=== PATIENT | female | born 1955 | race Caucasian/White ===

== ENCOUNTER → 2019-11-29 | Outpatient (CLI) | payer MEDICARE ==
[~2019-11-29] MED LIST: BP meds PO; Metformin PO; OXYC-302 PO; trazodone PO
[2019-11-29 10:27] LABS: BASOPHILS % (AUTO) 1 % (0-1); EOSINOPHILS # (AUTO) 0.15 x10^3/uL (0-0.4); EOSINOPHILS % (AUTO) 2 % (1-7); LYMPHOCYTES # (AUTO) 2.25 x10^3/uL (1-3.4); LYMPHOCYTES % (AUTO) 27 % (22-44); MD NO; MEAN CORPUSCULAR HGB CONC 32.4 g/dL (32.4-35.8); MEAN CORPUSCULAR VOLUME 86.3 fL (80-100); MONOCYTES # (AUTO) 0.51 x10^3/uL (0.2-0.8); MONOCYTES % (AUTO) 6 % (2-9); NEUTROPHILS # (AUTO) 5.37 x10^3/uL (1.8-6.8); NEUTROPHILS % (AUTO) 64 % (42-75); PLATELET COUNT 246 x10^3/uL (130-400); RED BLOOD COUNT 5.74 x10^6/uL (3.82-5.3); RED CELL DISTRIBUTION WIDTH 16.8 % (9.6-15.2)
[2019-11-29 10:37] LABS: MICROSCOPIC NOT IND
[2019-11-29 10:39] LABS: ANION GAP 4 mmol/L (5-15); CALCIUM 9.6 mg/dL (8.5-10.1); CHLORIDE 101 mmol/L (98-107)
[2019-11-29 10:40] LABS: INTERNATIONAL NORMALIZED RATIO 0.94 (0.93-1.1)
[2019-11-29 10:42] LABS: ALANINE AMINOTRANSFERASE 21 U/L (12-78); ALBUMIN 3.7 g/dL (3.4-5.0); ALKALINE PHOSPHATASE 132 U/L (45-117); BILIRUBIN,TOTAL 0.5 mg/dL (0.2-1.0); CREATININE 0.98 mg/dL (0.55-1.02); TOTAL PROTEIN 8.5 g/dL (6.4-8.2)
== END | disposition home or self-care (01) ==
LOC: STAR 09:26
PROVIDERS: ATTEND Neurological Surgery
DX: Z01.811 Encounter for preprocedural respiratory examination (principal); Z01.812 Encounter for preprocedural laboratory examination; Z01.810 Encounter for preprocedural cardiovascular examination; M48.061 Spinal stenosis, lumbar region without neurogenic claudication; M43.16 Spondylolisthesis, lumbar region; M54.16 Radiculopathy, lumbar region; R79.1 Abnormal coagulation profile; R82.90 Unspecified abnormal findings in urine; R94.31 Abnormal electrocardiogram [ECG] [EKG]
CPT/HCPCS: 36415; 71046; 80053; 81003; 85025; 85610; 85730; 93005

== ENCOUNTER 2019-12-04 09:30 | Inpatient (IN) | payer MEDICARE ==
[~2019-12-04] VITALS: Ht 154.9 cm; Wt 83.4 kg
[~2019-12-04 09:30] MED LIST changes: +BACITRACIN 50,000 UNIT ONE; +BUPIVACAINE/PF-EPI 0.5% 1:200K ONE; +HEPARIN 1,000 UNITS/ML, 30ML ONE
[2019-12-04] MEDS ORDERED: FENTANYL PF 250 MCG/5ML ONE (11:04)
[2019-12-04] MEDS ORDERED: MIDAZOLAM 1 MG/ML, 2ML ONE (11:04)
[2019-12-04] MEDS ORDERED: LACTATED RINGERS 1,000 ML IV SCH (11:19)
[2019-12-04] MEDS ORDERED: CHLORHEXIDINE 15 ML UDC MM ONE (11:30)
[2019-12-04] MEDS ORDERED: METF500T17 PO (11:32)
[2019-12-04] MEDS ORDERED: TRAZ150T62 PO (11:32)
[2019-12-04] MEDS ORDERED: PIOG30TA67 PO (11:32)
[2019-12-04] MEDS ORDERED: CARV6.252 PO (11:32)
[2019-12-04] MEDS ORDERED: TELM80TA8 PO (11:32)
[2019-12-04] MEDS ORDERED: AMLO10TA8 PO (11:32)
[2019-12-04] MEDS ORDERED: ESCI20TA10 PO (11:32)
[2019-12-04] MEDS ORDERED: GABA-827 PO (11:32)
[2019-12-04] MEDS ORDERED: BUSP7.5T5 PO (11:32)
[2019-12-04] MEDS ORDERED: CHLO25TA PO (11:32)
[2019-12-04] MEDS ORDERED: ATOR-2 PO (11:32)
[2019-12-04] MEDS ORDERED: LIDOCAINE-MPF 2% ,5ML ONE (12:23)
[2019-12-04] MEDS ORDERED: ACETAMINOPHEN 325 MG TABLET PO PRN (13:00)
[2019-12-04] MEDS ORDERED: hydrALAzine 20 MG/ML, 1ML IV PRN (13:00)
[2019-12-04] MEDS ORDERED: ALBUTEROL SULFATE 2.5 MG/3 ML NPPB PRN (13:00)
[2019-12-04] MEDS ORDERED: LORazepam 2 MG/ML, 1ML IVPush PRN (13:00)
[2019-12-04] MEDS ORDERED: LABETALOL 5MG/ML, 20ML IV PRN (13:00)
[2019-12-04] MEDS ORDERED: HYDROmorphone 1 MG/ML, 1ML INJ IVPush PRN (13:00)
[2019-12-04] MEDS ORDERED: MEPERIDINE/PF 25MG/0.5ML IVPush PRN (13:00)
[2019-12-04] MEDS ORDERED: PROMETHAZINE 25 MG/ML, 1ML IVPush PRN (13:00)
[2019-12-04] MEDS ORDERED: CEFAZOLIN 1,000 MG ONE (13:50)
[2019-12-04] MEDS ORDERED: ONDANSETRON 2MG/ML, 2ML ONE (13:50)
[2019-12-04] MEDS ORDERED: SUCCINYLCHOLINE 20 MG/ML, 10ML ONE (13:50)
[2019-12-04] MEDS ORDERED: PROPOFOL 10 MG/ML, 20ML ONE (13:50)
[2019-12-04] MEDS ORDERED: SUGAMMADEX 200 MG/2 ML IVPush ONE (13:50)
[2019-12-04] MEDS ORDERED: ROCURONIUM 10MG/ML,5ML ONE (13:50)
[2019-12-04] MEDS ORDERED: DEXAMETHASONE 4 MG/ML, 1ML ONE (13:50)
[2019-12-04] MEDS ORDERED: FENTANYL PF 100 MCG/2ML ONE ×2 (14:23→15:13)
[2019-12-04] MEDS ORDERED: OXYcodone 5 MG/5 ML ORAL.SOL UDC ONE ×2 (14:24→15:47)
[2019-12-04] MEDS: FENTANYL PF 100 MCG/2ML IV PRN ×5 (14:26→16:03)
[2019-12-04] MEDS ORDERED: BISACODYL 10 MG SUPP PR PRN (14:30)
[2019-12-04] MEDS ORDERED: METHOCARBAMOL 1,000 MG in DEXTROSE 5% 100 ML IV ONE (14:30)
[2019-12-04] MEDS ORDERED: DIPHENHYDRAMINE 50 MG/ML, 1ML IVPush PRN (14:30)
[2019-12-04] MEDS ORDERED: MAGNESIUM HYDROXIDE 8%, 30ML UDC PO PRN (14:30)
[2019-12-04] MEDS ORDERED: PHARMACY MAY ADJ FOR RENAL FX MC PRN (14:30)
[2019-12-04] MEDS ORDERED: INSULIN REGULAR 100 UNITS/ML, 3ML VIAL SQ-INSULIN PRN (14:30)
[2019-12-04] MEDS ORDERED: SENNA/DOCUSATE TABLET PO PRN (14:30)
[2019-12-04] MEDS ORDERED: PROMETHAZINE 25 MG/ML, 1ML IM PRN (14:30)
[2019-12-04] MEDS ORDERED: ONDANSETRON 2MG/ML, 2ML IVPush PRN (14:30)
[2019-12-04] MEDS: OXYcodone 5 MG/5 ML ORAL.SOL UDC PO PRN ×2 (15:00→15:48)
[2019-12-04] MEDS ORDERED: METHOCARBAMOL 1,000 MG in DEXTROSE 5% 100 ML IV PRN (15:00)
[2019-12-04] MEDS ORDERED: CEFAZOLIN PMX 1GM/50ML 50 ML IVPB SCH (17:30)
[2019-12-04] MEDS ORDERED: ENOXAPARIN 40 MG/0.4 ML SQ SCH (17:30)
[2019-12-04] MEDS: NS + 20MEQ KCL 1,000 ML IV SCH (17:44)
[2019-12-04] MEDS: HYDROmorphone 1 MG/ML, 1ML INJ IVPush PRN (17:44)
[2019-12-04] MEDS: GABAPENTIN 300 MG CAPSULE PO SCH ×2 (17:44→20:58)
[2019-12-04 18:46] VITALS: BP 147/68
[2019-12-04] MEDS: METHOCARBAMOL 750 MG TABLET PO PRN (19:57)
[2019-12-04] MEDS: HYDROcodone/APAP 5/325 TABLET PO PRN (19:57)
[2019-12-04] MEDS: CEFAZOLIN PMX 1GM/50ML 50 ML IVPB SCH (20:58)
[2019-12-04] MEDS: CARVEDILOL 6.25 MG TABLET PO SCH (20:58)
[2019-12-04] MEDS: TRAZODONE 150MG TABLET PO SCH (20:58)
[2019-12-04] MEDS: ATORVASTATIN 80 MG TABLET PO SCH (20:58)
[2019-12-04] MEDS: NICOTINE 21 MG/24 HR PATCH.TD24 TD SCH (20:59)
[2019-12-04] MEDS: INSULIN REGULAR 100 UNITS/ML, 3ML VIAL SQ-INSULIN SCH (21:00)
[2019-12-04] MEDS: SODIUM CHLORIDE FLUSH 10ML SYR IVF SCH (21:20)
[2019-12-04 23:26] VITALS: BP 109/70
[2019-12-05] MEDS: HYDROcodone/APAP 5/325 TABLET PO PRN ×5 (00:53→20:05)
[2019-12-05] MEDS: NS + 20MEQ KCL 1,000 ML IV SCH ×2 (03:30→13:16)
[2019-12-05 03:55] VITALS: BP 112/69
[2019-12-05] MEDS: METHOCARBAMOL 750 MG TABLET PO PRN ×2 (04:08→13:23)
[2019-12-05] MEDS: HYDROmorphone 1 MG/ML, 1ML INJ IVPush PRN ×3 (04:09→16:33)
[2019-12-05] MEDS: CEFAZOLIN PMX 1GM/50ML 50 ML IVPB SCH (04:47)
[2019-12-05 05:02] LABS: MEAN CORPUSCULAR HEMOGLOBIN 27.5 pg (27.0-34.8); MEAN CORPUSCULAR HGB CONC 31.5 g/dL (32.4-35.8); MEAN PLATELET VOLUME 9.1 fL (7.4-10.4); PLATELET COUNT 242 x10^3/uL (130-400); RED BLOOD COUNT 4.92 x10^6/uL (3.82-5.3); RED CELL DISTRIBUTION WIDTH 16.7 % (9.6-15.2)
[2019-12-05 05:08] LABS: ALBUMIN 3.1 g/dL (3.4-5.0); ANION GAP 4 mmol/L (5-15); CALCIUM 8.5 mg/dL (8.5-10.1); CHLORIDE 103 mmol/L (98-107); CREATININE 0.89 mg/dL (0.55-1.02)
[2019-12-05 05:49] LABS: BASOPHILS # (AUTO) 0.06 x10^3/uL (0-0.1); BASOPHILS % (AUTO) 0 % (0-1); EOSINOPHILS % (AUTO) 0 % (1-7); LYMPHOCYTES # (AUTO) 1.27 x10^3/uL (1-3.4); LYMPHOCYTES % (AUTO) 8 % (22-44); MD SCAN; MONOCYTES # (AUTO) 0.95 x10^3/uL (0.2-0.8); MONOCYTES % (AUTO) 6 % (2-9); NEUTROPHILS # (AUTO) 12.91 x10^3/uL (1.8-6.8); NEUTROPHILS % (AUTO) 85 % (42-75)
[2019-12-05] MEDS ORDERED: ENOXAPARIN 40 MG/0.4 ML SQ SCH (06:00)
[2019-12-05] MEDS: GABAPENTIN 300 MG CAPSULE PO SCH ×4 (06:17→20:46)
[2019-12-05 06:55] VITALS: BP 124/75
[2019-12-05] MEDS: INSULIN REGULAR 100 UNITS/ML, 3ML VIAL SQ-INSULIN SCH ×4 (07:00→20:45)
[2019-12-05] MEDS: BUSPIRONE 10 MG TABLET PO SCH (08:50)
[2019-12-05] MEDS: PIOGLITAZONE 15 MG TABLET PO SCH (08:50)
[2019-12-05] MEDS: AMLODIPINE 10 MG TAB PO SCH (08:50)
[2019-12-05] MEDS: ESCITALOPRAM 10MG TABLET PO SCH (08:50)
[2019-12-05] MEDS: CARVEDILOL 6.25 MG TABLET PO SCH ×2 (08:50→20:46)
[2019-12-05] MEDS: CHLORTHALIDONE 25 MG TABLET PO SCH (08:50)
[2019-12-05] MEDS: SODIUM CHLORIDE FLUSH 10ML SYR IVF SCH ×2 (08:51→20:46)
[2019-12-05 13:25] VITALS: BP 110/70
[2019-12-05 19:24] VITALS: BP 121/62
[2019-12-05] MEDS: ATORVASTATIN 80 MG TABLET PO SCH (20:45)
[2019-12-05] MEDS: NICOTINE 21 MG/24 HR PATCH.TD24 TD SCH (20:46)
[2019-12-05] MEDS: TRAZODONE 150MG TABLET PO SCH (20:46)
[2019-12-06 01:11] VITALS: BP 152/79
[2019-12-06] MEDS: NS + 20MEQ KCL 1,000 ML IV SCH ×2 (02:48→09:30)
[2019-12-06] MEDS: HYDROcodone/APAP 5/325 TABLET PO PRN (02:49)
[2019-12-06] MEDS: GABAPENTIN 300 MG CAPSULE PO SCH ×4 (04:51→22:15)
[2019-12-06 04:59] LABS: MEAN CORPUSCULAR HEMOGLOBIN 27.3 pg (27.0-34.8); MEAN CORPUSCULAR HGB CONC 31.4 g/dL (32.4-35.8); MEAN PLATELET VOLUME 8.8 fL (7.4-10.4); PLATELET COUNT 202 x10^3/uL (130-400); RED BLOOD COUNT 4.65 x10^6/uL (3.82-5.3); RED CELL DISTRIBUTION WIDTH 16.2 % (9.6-15.2)
[2019-12-06 05:51] LABS: BASOPHILS # (AUTO) 0.08 x10^3/uL (0-0.1); BASOPHILS % (AUTO) 1 % (0-1); EOSINOPHILS # (AUTO) 0.01 x10^3/uL (0-0.4); EOSINOPHILS % (AUTO) 0 % (1-7); LYMPHOCYTES # (AUTO) 1.32 x10^3/uL (1-3.4); LYMPHOCYTES % (AUTO) 10 % (22-44); MD SCAN; MONOCYTES # (AUTO) 0.95 x10^3/uL (0.2-0.8); MONOCYTES % (AUTO) 7 % (2-9); NEUTROPHILS # (AUTO) 11.07 x10^3/uL (1.8-6.8); NEUTROPHILS % (AUTO) 82 % (42-75)
[2019-12-06] MEDS ORDERED: BACITRACIN 50,000 UNIT ONE (06:16)
[2019-12-06] MEDS ORDERED: VANCOMYCIN 1,000 MG ONE (06:16)
[2019-12-06] MEDS ORDERED: BUPIVACAINE/EPI 0.5% 1:200K ONE (06:16)
[2019-12-06] MEDS ORDERED: MIDAZOLAM 1 MG/ML, 2ML ONE (06:31)
[2019-12-06] MEDS ORDERED: FENTANYL PF 250 MCG/5ML ONE (06:32)
[2019-12-06] MEDS ORDERED: CHLORHEXIDINE 15 ML UDC MM STA (06:41)
[2019-12-06 06:54] VITALS: BP 112/75
[2019-12-06] MEDS ORDERED: LIDOCAINE 1%, 10ML ONE (07:00)
[2019-12-06] MEDS ORDERED: GLYCOPYRROLATE 0.4 MG/2 ML, 2ML ONE (07:00)
[2019-12-06] MEDS: INSULIN REGULAR 100 UNITS/ML, 3ML VIAL SQ-INSULIN SCH ×4 (07:15→22:09)
[2019-12-06] MEDS ORDERED: methylPREDNISolone SOD SUCC 125 MG/2 ML ONE (08:11)
[2019-12-06] MEDS ORDERED: BUPIVACAINE/EPI 0.5% 1:200K INFIL ONE (08:21)
[2019-12-06] MEDS ORDERED: VANCOMYCIN 1,000 MG IM ONE (08:22)
[2019-12-06] MEDS ORDERED: BACITRACIN 50,000 UNIT IRRIG ONE (08:22)
[2019-12-06] MEDS ORDERED: FENTANYL PF 100 MCG/2ML IV PRN (09:00)
[2019-12-06] MEDS: SODIUM CHLORIDE FLUSH 10ML SYR IVF SCH ×2 (09:00→19:36)
[2019-12-06] MEDS ORDERED: ONDANSETRON 2MG/ML, 2ML IVPush PRN ×2 (09:00→10:00)
[2019-12-06] MEDS: ESCITALOPRAM 10MG TABLET PO SCH (09:00)
[2019-12-06] MEDS: AMLODIPINE 10 MG TAB PO SCH (09:00)
[2019-12-06] MEDS: CHLORTHALIDONE 25 MG TABLET PO SCH (09:00)
[2019-12-06] MEDS ORDERED: LABETALOL 5MG/ML, 20ML IV PRN (09:00)
[2019-12-06] MEDS: BUSPIRONE 10 MG TABLET PO SCH (09:00)
[2019-12-06] MEDS ORDERED: OXYcodone 5 MG/5 ML ORAL.SOL UDC PO PRN (09:00)
[2019-12-06] MEDS ORDERED: hydrALAzine 20 MG/ML, 1ML IV PRN (09:00)
[2019-12-06] MEDS: PIOGLITAZONE 15 MG TABLET PO SCH (09:00)
[2019-12-06] MEDS: CARVEDILOL 6.25 MG TABLET PO SCH ×2 (09:00→22:15)
[2019-12-06] MEDS ORDERED: BISACODYL 10 MG SUPP PR PRN (10:00)
[2019-12-06] MEDS ORDERED: HYDROmorphone/PF 4 MG/ML, 1ML IM PRN (10:00)
[2019-12-06] MEDS ORDERED: PHARMACY MAY ADJ FOR RENAL FX MC PRN (10:00)
[2019-12-06] MEDS ORDERED: ALBUTEROL/IPRATROPIUM 2.5MG/0.5MG, 3 ML NPPB PRN (10:00)
[2019-12-06] MEDS ORDERED: DIPHENHYDRAMINE 50 MG/ML, 1ML IVPush PRN (10:00)
[2019-12-06] MEDS ORDERED: MAGNESIUM HYDROXIDE 8%, 30ML UDC PO PRN (10:00)
[2019-12-06] MEDS ORDERED: ACETAMINOPHEN 325 MG TABLET PO PRN (10:00)
[2019-12-06] MEDS ORDERED: PROMETHAZINE 25 MG/ML, 1ML IM PRN (10:00)
[2019-12-06] MEDS ORDERED: SENNA/DOCUSATE TABLET PO PRN (10:00)
[2019-12-06] MEDS ORDERED: OXYcodone 5 MG/5 ML ORAL.SOL UDC ONE (10:22)
[2019-12-06] MEDS ORDERED: HYDROmorphone 1 MG/ML, 1ML INJ ONE (10:23)
[2019-12-06] MEDS: HYDROmorphone 1 MG/ML, 1ML INJ IVPush PRN ×3 (10:25→18:41)
[2019-12-06] MEDS: ENOXAPARIN 40 MG/0.4 ML SQ SCH (11:00)
[2019-12-06] MEDS ORDERED: NS + 20MEQ KCL 1,000 ML IV SCH (11:00)
[2019-12-06] MEDS ORDERED: METHOCARBAMOL 1,000 MG in DEXTROSE 5% 100 ML IV ONE (11:00)
[2019-12-06 13:00] VITALS: BP 112/73
[2019-12-06 13:33] VITALS: BP 103/61
[2019-12-06] MEDS: CEFAZOLIN PMX 1GM/50ML 50 ML IVPB SCH (15:42)
[2019-12-06] MEDS: OXYcodone/APAP 5/325MG TABLET PO PRN ×2 (15:50→22:20)
[2019-12-06 15:56] LABS: TROPONIN I < 0.015 ng/mL (0.000-0.045)
[2019-12-06] MEDS ORDERED: OMNIPAQUE 350 MG/ML, 75ML BOTTLE ONE (17:45)
[2019-12-06] MEDS ORDERED: METHOCARBAMOL 750 MG TABLET PO PRN (18:00)
[2019-12-06 20:33] VITALS: BP 112/65
[2019-12-06 22:14] VITALS: BP 121/69
[2019-12-06] MEDS: TRAZODONE 150MG TABLET PO SCH (22:15)
[2019-12-06] MEDS: NICOTINE 21 MG/24 HR PATCH.TD24 TD SCH (22:15)
[2019-12-06] MEDS: ATORVASTATIN 80 MG TABLET PO SCH (22:15)
[2019-12-06 23:13] LABS: TROPONIN I < 0.015 ng/mL (0.000-0.045)
[2019-12-07] MEDS: CEFAZOLIN PMX 1GM/50ML 50 ML IVPB SCH (01:15)
[2019-12-07] MEDS ORDERED: HYDROmorphone 1 MG/ML, 1ML INJ IV PRN (01:30)
[2019-12-07 01:36] VITALS: BP 111/66
[2019-12-07 05:28] VITALS: BP 133/77
[2019-12-07] MEDS: GABAPENTIN 300 MG CAPSULE PO SCH ×4 (05:29→22:09)
[2019-12-07] MEDS: OXYcodone/APAP 5/325MG TABLET PO PRN ×4 (05:30→22:09)
[2019-12-07] MEDS: NS + 20MEQ KCL 1,000 ML IV SCH (06:11)
[2019-12-07 07:00] LABS: BASOPHILS # (AUTO) 0.05 x10^3/uL (0-0.1); BASOPHILS % (AUTO) 1 % (0-1); EOSINOPHILS % (AUTO) 0 % (1-7); LYMPHOCYTES # (AUTO) 1.05 x10^3/uL (1-3.4); LYMPHOCYTES % (AUTO) 10 % (22-44); MD NO; MEAN CORPUSCULAR HEMOGLOBIN 27.6 pg (27.0-34.8); MEAN CORPUSCULAR HGB CONC 31.5 g/dL (32.4-35.8); MEAN PLATELET VOLUME 9.2 fL (7.4-10.4); MONOCYTES # (AUTO) 0.85 x10^3/uL (0.2-0.8); MONOCYTES % (AUTO) 8 % (2-9); NEUTROPHILS # (AUTO) 8.37 x10^3/uL (1.8-6.8); NEUTROPHILS % (AUTO) 81 % (42-75); PLATELET COUNT 167 x10^3/uL (130-400); RED CELL DISTRIBUTION WIDTH 16.8 % (9.6-15.2)
[2019-12-07] MEDS: INSULIN REGULAR 100 UNITS/ML, 3ML VIAL SQ-INSULIN SCH ×4 (07:00→21:46)
[2019-12-07 08:31] VITALS: BP 126/71
[2019-12-07] MEDS: SODIUM CHLORIDE FLUSH 10ML SYR IVF SCH ×2 (09:00→22:10)
[2019-12-07] MEDS: ESCITALOPRAM 10MG TABLET PO SCH (09:11)
[2019-12-07] MEDS: BUSPIRONE 10 MG TABLET PO SCH (09:11)
[2019-12-07] MEDS: CHLORTHALIDONE 25 MG TABLET PO SCH (09:11)
[2019-12-07] MEDS: HYDROcodone/APAP 5/325 TABLET PO PRN ×3 (09:11→20:03)
[2019-12-07] MEDS: PIOGLITAZONE 15 MG TABLET PO SCH (09:11)
[2019-12-07] MEDS: AMLODIPINE 10 MG TAB PO SCH (09:11)
[2019-12-07] MEDS: CARVEDILOL 6.25 MG TABLET PO SCH ×2 (09:12→22:10)
[2019-12-07] MEDS: ENOXAPARIN 40 MG/0.4 ML SQ SCH (11:13)
[2019-12-07 14:15] VITALS: BP 109/67
[2019-12-07 19:26] VITALS: BP 102/69
[2019-12-07] MEDS: NICOTINE 21 MG/24 HR PATCH.TD24 TD SCH (20:03)
[2019-12-07 22:04] VITALS: BP 101/54
[2019-12-07] MEDS: TRAZODONE 150MG TABLET PO SCH (22:09)
[2019-12-07] MEDS: ATORVASTATIN 80 MG TABLET PO SCH (22:09)
[2019-12-08 00:07] VITALS: BP 118/74
[2019-12-08] MEDS: HYDROcodone/APAP 5/325 TABLET PO PRN ×3 (01:37→09:03)
[2019-12-08] MEDS: NS + 20MEQ KCL 1,000 ML IV SCH (04:52)
[2019-12-08] MEDS: OXYcodone/APAP 5/325MG TABLET PO PRN ×3 (04:54→14:43)
[2019-12-08] MEDS: GABAPENTIN 300 MG CAPSULE PO SCH ×2 (05:00→11:28)
[2019-12-08 06:38] VITALS: BP 116/74
[2019-12-08] MEDS: INSULIN REGULAR 100 UNITS/ML, 3ML VIAL SQ-INSULIN SCH ×2 (07:00→11:00)
[2019-12-08 07:01] LABS: BASOPHILS # (AUTO) 0.04 x10^3/uL (0-0.1); BASOPHILS % (AUTO) 1 % (0-1); EOSINOPHILS # (AUTO) 0.05 x10^3/uL (0-0.4); EOSINOPHILS % (AUTO) 1 % (1-7); LYMPHOCYTES # (AUTO) 1.19 x10^3/uL (1-3.4); LYMPHOCYTES % (AUTO) 16 % (22-44); MD NO; MEAN CORPUSCULAR HEMOGLOBIN 27.1 pg (27.0-34.8); MONOCYTES % (AUTO) 8 % (2-9); NEUTROPHILS # (AUTO) 5.71 x10^3/uL (1.8-6.8); NEUTROPHILS % (AUTO) 75 % (42-75); PLATELET COUNT 201 x10^3/uL (130-400); RED CELL DISTRIBUTION WIDTH 16.5 % (9.6-15.2)
[2019-12-08 08:36] VITALS: BP 138/77
[2019-12-08] MEDS: PIOGLITAZONE 15 MG TABLET PO SCH (08:45)
[2019-12-08] MEDS: SODIUM CHLORIDE FLUSH 10ML SYR IVF SCH (08:45)
[2019-12-08] MEDS: BUSPIRONE 10 MG TABLET PO SCH (08:45)
[2019-12-08] MEDS: AMLODIPINE 10 MG TAB PO SCH (08:46)
[2019-12-08] MEDS: ESCITALOPRAM 10MG TABLET PO SCH (08:46)
[2019-12-08] MEDS: CARVEDILOL 6.25 MG TABLET PO SCH (08:47)
[2019-12-08] MEDS: CHLORTHALIDONE 25 MG TABLET PO SCH (08:47)
[2019-12-08] MEDS: ENOXAPARIN 40 MG/0.4 ML SQ SCH (11:28)
[2019-12-08 13:13] VITALS: BP 104/66
[2019-12-08] MEDS ORDERED: METH750T87 PO (14:49)
== END 2019-12-08 15:20 | disposition home or self-care (01) | DRG 453 ==
LOC: ORIP 10:45 → 4NE 16:47 → 4WST 12-06 16:49 → DCLOUNGE 12-08 15:11
PROVIDERS: ADMIT Neurological Surgery; ATTEND Neurological Surgery
PROC: 0SG00K1 Fusion of Lumbar Vertebral Joint with Nonautologous Tissue Substitute, Posterior Approach, Posterior Column, Open Approach (ICD-10-PCS; 2019-12-04)
PROC: 0ST20ZZ Resection of Lumbar Vertebral Disc, Open Approach (ICD-10-PCS; 2019-12-04)
PROC: 0SG00A0 Fusion of Lumbar Vertebral Joint with Interbody Fusion Device, Anterior Approach, Anterior Column, Open Approach (ICD-10-PCS; principal; 2019-12-04 13:30)
PROC: 01NR0ZZ Release Sacral Nerve, Open Approach (ICD-10-PCS; 2019-12-06)
PROC: 01NB0ZZ Release Lumbar Nerve, Open Approach (ICD-10-PCS; 2019-12-06)
PROC: 8E0W0CZ Robotic Assisted Procedure of Trunk Region, Open Approach (ICD-10-PCS; 2019-12-06)
DX: M48.062 Spinal stenosis, lumbar region with neurogenic claudication (principal); J96.01 Acute respiratory failure with hypoxia; M43.16 Spondylolisthesis, lumbar region; M51.16 Intervertebral disc disorders with radiculopathy, lumbar region; M53.2X6 Spinal instabilities, lumbar region; M48.07 Spinal stenosis, lumbosacral region; I10 Essential (primary) hypertension; M19.90 Unspecified osteoarthritis, unspecified site; F32.9 Major depressive disorder, single episode, unspecified; F41.9 Anxiety disorder, unspecified; E11.9 Type 2 diabetes mellitus without complications; F17.210 Nicotine dependence, cigarettes, uncomplicated; M51.17 Intervertebral disc disorders with radiculopathy, lumbosacral region; M79.604 Pain in right leg; E78.5 Hyperlipidemia, unspecified; Z90.49 Acquired absence of other specified parts of digestive tract; Z90.710 Acquired absence of both cervix and uterus; Z90.89 Acquired absence of other organs; Z79.84 Long term (current) use of oral hypoglycemic drugs; Z20.828 Contact with and (suspected) exposure to other viral communicable diseases; Z68.34 Body mass index [BMI] 34.0-34.9, adult; Z80.42 Family history of malignant neoplasm of prostate; Z80.0 Family history of malignant neoplasm of digestive organs; Z96.632 Presence of left artificial wrist joint; Z96.631 Presence of right artificial wrist joint
CPT/HCPCS: 36415; 71045; 71275; 72100; 72131; 74018; 80048; 82040; 82962; 83036; 83735; 84484; 85025; 85379; 86850; 86900; 87635; 93005; C1713; G0378; J0690; J1100; J1170; J1644; J1650; J1815; J2250; J2405; J2704; J3010; J3370; J3480; Q9967; C1763; C1889; J0330; J2800; J2930; J7120